=== PATIENT | male | born 2000 | race Caucasian/White ===

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

== ENCOUNTER 2021-07-17 20:18 | Emergency (ER) | payer OTHER ==
--- NOTE | 2021-07-17 21:06 | ED ---
Lower Extremity Injury HPI - General Chief Complaint: Extremity Injury, Lower Stated Complaint: Injury-Left Foot Time Seen by Provider: 07/17/21 20:37 Source: patient Mode of arrival: ambulatory Limitations: no limitations - History of Present Illness Initial Comments: Patient is a 20-year-old male presenting to emergency Department with complaints of pain in his left foot. Patient states about 2-3 days ago, he accidentally kicked a kitchen chair. He is having pain in his fifth digit and does extend up his metatarsal a bit. He does have some bruising to the area, no swelling. He states it hurts to ambulate. Denies any previous injuries or surgeries to his left foot or ankle. He has no further complaints today. - Related Data Previous Rx's Medication Instructions Recorded Albuterol Inhaler (Mhu) [Ventolin 1 - 2 puff INHALATION RT-Q6H PRN 7 08/25/19 Hfa Inhaler] Days #1 inhaler methylPREDNISolone [Medrol Dose 4 mg PO DIRECTED #1 pack 08/25/19 Pack] Allergies Allergy/AdvReac Type Severity Reaction Status Date / Time No Known Allergies Allergy Verified 07/17/21 20:26 Review of Systems ROS Statement: Those systems with pertinent positive or pertinent negative responses have been documented in the HPI. ROS Other: All systems not noted in ROS Statement are negative. Past Medical History Past Medical History: No Reported History History of Any Multi-Drug Resistant Organisms: None Reported Past Surgical History: No Surgical Hx Reported Past Psychological History: No Psychological Hx Reported Smoking Status: Never smoker Past Alcohol Use History: None Reported Past Drug Use History: None Reported General Exam - General Exam Comments Initial Comments: GENERAL: Patient is well-developed and well-nourished. Patient is nontoxic and in no acute distress. HEAD: Atraumatic, normocephalic. EYES: Pupils equal round and reactive to light, extraocular movements intact, sclera anicteric, conjunctiva are normal. Eyelids were unremarkable. LUNGS: Unlabored respirations. Breath sounds clear to auscultation bilaterally and equal. No wheezes rales or rhonchi. HEART: Regular rate and rhythm without murmurs, rubs or gallops. MUSCULOSKELETAL: Patient has pain with palpation along the left fifth toe, there is some bruising there, pain along the fifth metatarsal as well. Vascular intact, no pain of the left ankle. No clubbing or cyanosis. NEUROLOGICAL: Patient is alert and oriented x 3. SKIN: Warm, Dry, normal turgor, no rashes or lesions noted. Limitations: no limitations Course Vital Signs 07/17/21 20:24 Pulse Rate 79 Respiratory 19 Rate Blood Pressure 119/79 O2 Sat by Pulse 98 Oximetry Medical Decision Making - Medical Decision Making Patient is a 20-year-old male here with pain of his left little toe. He accidentally kicked a chair 2-3 days ago. X-rays show a possible linear lucency on one of the views however the 2 other views do not confirm this. He has a little tenderness area however more so tender over the metatarsal. I do not feel like there is an acute fracture dislocation. I discussed the patient's most likely a bone contusion versus sprain of the joint. Recommended ice to the area, he can follow up with his PCP for recheck if symptoms persist. He is agreeable to this. He is stable for discharge. Disposition Clinical Impression: Contusion of left foot Disposition: HOME SELF-CARE Condition: Stable Instructions (If sedation given, give patient instructions): Foot Contusion (ED) Additional Instructions: Please return to the Emergency Department if symptoms worsen or any other concerns. Recommend ice to the area, supportive shoe for comfort. May take motrin for pain. Follow-up with your family doctor as needed. Is patient prescribed a controlled substance at d/c from ED?: No Referrals: Dimas Jara MD [Primary Care Provider] - 1-2 days Time of Disposition: 21:41
--- NOTE | 2021-07-17 21:31 | XR ---
PROCEDURE: XR foot complete LT - 3V DATE AND TIME: 07/17/2021 9:12 PM CLINICAL INDICATION: Injury; pain, bruising. TECHNIQUE: Department protocol COMPARISON: None FINDINGS: On the PA view there is a vertically-oriented linear lucency over the proximal fifth phalan x. This is not confirmed on the other views. Request palpation correlation to correlate for tendernes s. If no tenderness in this position, then negative for fracture. There are no other candidates for fracture. There is no malalignment. The soft tissues are unremarkable. IMPRESSION: No definite acute process, as above.
[2021-07-17 21:51] VITALS: BP 118/68; PULSE 74; RESP 16; TEMP 98
== END 2021-07-17 21:50 | disposition home or self-care (01) ==
LOC: EC 20:18
DX: S90.32XA Contusion of left foot, initial encounter (principal); W22.03XA Walked into furniture, initial encounter
CPT/HCPCS: 99283

== ENCOUNTER 2021-12-10 04:20 | Emergency (ER) | payer OTHER ==
[2021-12-10 04:28] VITALS: BP 132/72; PULSE 70; RESP 16; TEMP 98.6
[2021-12-10] MEDS ORDERED: IBUPROFEN 400 MG TAB PO STA (04:43)
[2021-12-10] MEDS ORDERED: ACETAMINOPHEN TAB 325 MG TAB PO STA (04:43)
--- NOTE | 2021-12-10 04:43 | ED ---
Fall HPI - General Chief Complaint: Fall Stated Complaint: Fall, head injury Time Seen by Provider: 12/10/21 04:30 Source: patient Mode of arrival: ambulatory - History of Present Illness Complaint: fall Onset/Timin -: minutes(s) Fall From: standing When Fall Occurred: just prior to arrival Fall Witnessed: yes, by bystander Place Fall Occurred: other Loss of Consciousness: none Prolonged Down Time?: no Symptoms Prior to Fall: none Location: head Severity: moderate Quality: aching Context: tripped/slipped Associated Symptoms: headache - Related Data Previous Rx's Medication Instructions Recorded Albuterol Inhaler (Mhu) [Ventolin 1 - 2 puff INHALATION RT-Q6H PRN 7 08/25/19 Hfa Inhaler] Days #1 inhaler methylPREDNISolone [Medrol Dose 4 mg PO DIRECTED #1 pack 08/25/19 Pack] Allergies Allergy/AdvReac Type Severity Reaction Status Date / Time No Known Allergies Allergy Verified 12/10/21 04:27 Review of Systems ROS Statement: Those systems with pertinent positive or pertinent negative responses have been documented in the HPI. ROS Other: All systems not noted in ROS Statement are negative. Constitutional: Denies: fever, weakness Eyes: Denies: vision change ENT: Denies: ear pain, epistaxis Respiratory: Denies: cough, dyspnea Cardiovascular: Denies: chest pain, syncope Gastrointestinal: Denies: abdominal pain, nausea, vomiting Musculoskeletal: Denies: back pain Neurological: Reports: headache. Denies: weakness, numbness, paresthesias, confusion, vertigo Hematological/Lymphatic: Denies: easy bleeding Past Medical History Past Medical History: No Reported History History of Any Multi-Drug Resistant Organisms: None Reported Past Surgical History: No Surgical Hx Reported Past Psychological History: No Psychological Hx Reported Smoking Status: Current every day smoker, Vaper Past Alcohol Use History: None Reported Past Drug Use History: None Reported General Exam Limitations: no limitations General appearance: alert, in no apparent distress Head exam: Present: atraumatic, normocephalic, normal inspection, other (No palpable deformity or tenderness on exam.) Eye exam: Present: normal appearance, PERRL, EOMI. Absent: scleral icterus, conjunctival injection, nystagmus ENT exam: Present: normal oropharynx, mucous membranes moist, TM's normal bilaterally, normal external ear exam Neck exam: Present: normal inspection, full ROM. Absent: tenderness, meningismus Respiratory exam: Present: normal lung sounds bilaterally. Absent: respiratory distress, wheezes, rales, rhonchi, stridor, chest wall tenderness Cardiovascular Exam: Present: regular rate, normal rhythm, normal heart sounds. Absent: systolic murmur, diastolic murmur, rubs, gallop GI/Abdominal exam: Present: soft. Absent: distended, tenderness, guarding Back exam: Present: normal inspection. Absent: CVA tenderness (R), CVA tenderness (L), vertebral tenderness Neurological exam: Present: alert, oriented X3, CN II-XII intact. Absent: motor sensory deficit Skin exam: Present: warm, dry, intact, normal color. Absent: rash Course Vital Signs 12/10/21 04:25 Temperature 98.6 F Pulse Rate 70 Respiratory 16 Rate Blood Pressure 132/72 O2 Sat by Pulse 96 Oximetry Disposition Clinical Impression: Fall, Head injury, acute Disposition: HOME SELF-CARE Condition: Good Instructions (If sedation given, give patient instructions): Head Injury (ED) Is patient prescribed a controlled substance at d/c from ED?: No Referrals: Dimas Jara MD [Primary Care Provider] - 1-2 days
== END 2021-12-10 04:59 | disposition home or self-care (01) ==
LOC: EC 04:20
DX: S09.90XA Unspecified injury of head, initial encounter (principal); F17.290 Nicotine dependence, other tobacco product, uncomplicated; W01.0XXA Fall on same level from slipping, tripping and stumbling without subsequent striking against object, initial encounter
CPT/HCPCS: 99283

== ENCOUNTER 2021-12-11 20:49 | Emergency (ER) | payer OTHER ==
[2021-12-11 21:47] VITALS: TEMP 98.4
--- NOTE | 2021-12-11 23:01 | CT ---
EXAMINATION TYPE: CT brain wo con DATE OF EXAM: 12/11/2021 COMPARISON: None HISTORY: headache 2 days after head injury CT DLP: 1047.4 mGycm Automated exposure control for dose reduction was used. Images of the brain obtained without contrast. Ventricles of normal size. There is no mass effect or midline shift. There is no sign of intracranial hemorrhage. Calvarium is intact. There is normal aeration of the mastoid sinuses. IMPRESSION: Normal unenhanced head CT scan.
--- NOTE | 2021-12-11 23:03 | ED ---
Head Injury HPI - General Chief complaint: Head Injury Stated complaint: Headache Source: patient Mode of arrival: ambulatory - History of Present Illness Initial comments: Jesus is a 21-year-old male who presents to the emergency department today via private vehicle for reevaluation of persistent headache. Patient was seen and evaluated 2 days ago he had a slip and fall on ice slipping backwards and striking his head. Patient stated that since that time he has had a persistent headache episodes of confusion. - Related Data Previous Rx's Medication Instructions Recorded Albuterol Inhaler (Mhu) [Ventolin 1 - 2 puff INHALATION RT-Q6H PRN 7 08/25/19 Hfa Inhaler] Days #1 inhaler methylPREDNISolone [Medrol Dose 4 mg PO DIRECTED #1 pack 08/25/19 Pack] Allergies/Adverse reactions: Allergies Allergy/AdvReac Type Severity Reaction Status Date / Time No Known Allergies Allergy Verified 12/11/21 21:46 Review of Systems ROS Statement: Those systems with pertinent positive or pertinent negative responses have been documented in the HPI. ROS Other: All systems not noted in ROS Statement are negative. Past Medical History Past Medical History: No Reported History History of Any Multi-Drug Resistant Organisms: None Reported Past Surgical History: No Surgical Hx Reported Past Psychological History: No Psychological Hx Reported Smoking Status: Current every day smoker, Vaper Past Alcohol Use History: None Reported Past Drug Use History: None Reported General Exam - General Exam Comments Initial Comments: Physical Exam GENERAL: Patient is well-developed and well-nourished. Patient is nontoxic and well-hydrated and is in no distress. HENT: Normocephalic, Atraumatic. No levy signs, no raccoon eyes EYES: PERRL, EOMI No papilledema PULMONARY: Unlabored respirations. No audible rales rhonchi or wheezing was noted. CARDIOVASCULAR: There is a regular rate and rhythm without any murmurs gallops or rubs. ABDOMEN: Soft and nontender with normal bowel sounds. SKIN: Skin is clear with no lesions or rashes and otherwise unremarkable. : Deferred NEUROLOGIC: Patient is alert and oriented x3. Moving all extremities spontaneously MUSCULOSKELETAL: Normal extremities with adequate strength and full range of motion. No lower extremity swelling or edema. No calf tenderness. PSYCHIATRIC: Normal psychiatric evaluation. Course Vital Signs 12/11/21 21:44 Temperature 98.4 F Pulse Rate 63 Respiratory 19 Rate Blood Pressure 127/83 O2 Sat by Pulse 98 Oximetry Medical Decision Making - Medical Decision Making Computed tomography scan was ordered from triage and resolve with no acute findings The patient was seen and evaluated history was obtained from the patient and review of medical record Patient suffering from concussion symptoms. Concussion supportive care was discussed with patient including brain rest, limiting activity for the next 48 hours and slow return to activity based on symptomatology. Patient was advised that if symptoms left greater than 2 weeks he should follow with the neurologist on outpatient basis. Disposition Clinical Impression: Closed head injury Disposition: HOME SELF-CARE Instructions (If sedation given, give patient instructions): Concussion (ED) Is patient prescribed a controlled substance at d/c from ED?: No Referrals: Dimas Jara MD [Primary Care Provider] - 1-2 days
[2021-12-11 23:46] VITALS: BP 108/61; PULSE 61; RESP 17
== END 2021-12-11 23:42 | disposition home or self-care (01) ==
LOC: EC 20:49
DX: S09.90XA Unspecified injury of head, initial encounter (principal); F17.290 Nicotine dependence, other tobacco product, uncomplicated; W01.0XXA Fall on same level from slipping, tripping and stumbling without subsequent striking against object, initial encounter
CPT/HCPCS: 70450; 99284

== ENCOUNTER 2022-04-14 00:46 | Emergency (ER) | payer OTHER ==
[2022-04-14 00:49] VITALS: TEMP 98.2
[2022-04-14 01:19] VITALS: RESP 14
--- NOTE | 2022-04-14 01:31 | ED ---
Chest Pain HPI - General Chief Complaint: Chest Pain Stated Complaint: Chest pain Time Seen by Provider: 04/14/22 00:59 Source: patient, RN notes reviewed, old records reviewed Mode of arrival: ambulatory Limitations: no limitations - History of Present Illness Initial Comments: This is a 21-year-old male to the emergency room for evaluation. Patient Dese for evaluation of chest pain burning epigastric pain nausea no vomiting felt like heartburn but did not does go away. Patient has no prior history of heart disease no significant medical history no recent travel history or sick contacts. MD Complaint: chest pain -: hour(s) Onset: during rest Pain Location: substernal Pain Radiation: none Severity: mild Quality: sharp, other (Burning) Consistency: intermittent, now resolved Improves With: nothing Worsens With: nothing Other Symptoms: acid taste in mouth, burping Treatments Prior to Arrival: none - Related Data Previous Rx's Medication Instructions Recorded Albuterol Inhaler (Mhu) [Ventolin 1 - 2 puff INHALATION RT-Q6H PRN 7 08/25/19 Hfa Inhaler] Days #1 inhaler methylPREDNISolone [Medrol Dose 4 mg PO DIRECTED #1 pack 08/25/19 Pack] Allergies Allergy/AdvReac Type Severity Reaction Status Date / Time No Known Allergies Allergy Verified 04/14/22 00:49 Review of Systems ROS Statement: Those systems with pertinent positive or pertinent negative responses have been documented in the HPI. ROS Other: All systems not noted in ROS Statement are negative. EKG Findings - EKG Comments: EKG Findings:: EKG is sinus bradycardia 56 IL 146 QRS 87 QTC 380 Past Medical History Past Medical History: No Reported History History of Any Multi-Drug Resistant Organisms: None Reported Past Surgical History: No Surgical Hx Reported Past Psychological History: No Psychological Hx Reported Smoking Status: Vaper Past Alcohol Use History: None Reported Past Drug Use History: None Reported General Exam Limitations: no limitations General appearance: alert, in no apparent distress Head exam: Present: atraumatic, normocephalic, normal inspection Eye exam: Present: normal appearance, PERRL, EOMI. Absent: scleral icterus, conjunctival injection, periorbital swelling ENT exam: Present: normal exam, mucous membranes moist Neck exam: Present: normal inspection. Absent: tenderness, meningismus, lymphadenopathy Respiratory exam: Present: normal lung sounds bilaterally. Absent: respiratory distress, wheezes, rales, rhonchi, stridor Cardiovascular Exam: Present: regular rate, normal rhythm, normal heart sounds. Absent: systolic murmur, diastolic murmur, rubs, gallop, clicks GI/Abdominal exam: Present: soft, normal bowel sounds. Absent: distended, tenderness, guarding, rebound, rigid Extremities exam: Present: normal inspection, full ROM, normal capillary refill. Absent: tenderness, pedal edema, joint swelling, calf tenderness Back exam: Present: normal inspection Neurological exam: Present: alert, oriented X3, CN II-XII intact Psychiatric exam: Present: normal affect, normal mood Skin exam: Present: warm, dry, intact, normal color. Absent: rash Course Vital Signs 04/14/22 04/14/22 00:47 01:18 Temperature 98.2 F Pulse Rate 66 57 L Respiratory 18 14 Rate Blood Pressure 128/98 125/73 O2 Sat by Pulse 96 98 Oximetry - Reevaluation(s) Reevaluation #1: 04/14/22 01:14 Record is reviewed Reevaluation #2: 04/14/22 01:15 Patient informed of results and questions answered Reevaluation #3: 04/14/22 01:15 Patient feels improved and can be discharged Chest Pain MDM - MDM 21-year-old male to the emergency department with GI type chest pain burning epigastric pain with a normal chest x-ray and EKG. Patient can be discharged home Disposition Clinical Impression: Chest pain, Atypical chest pain Disposition: HOME SELF-CARE Condition: Good Instructions (If sedation given, give patient instructions): Chest Pain (ED) Is patient prescribed a controlled substance at d/c from ED?: No Referrals: Dimas Jara MD [Primary Care Provider] - 1-2 days Time of Disposition: 02:00
--- NOTE | 2022-04-14 01:45 | XR ---
EXAMINATION TYPE: XR chest 1V portable DATE OF EXAM: 04/14/2022 COMPARISON: 08/25/2019 HISTORY: Cough and congestion TECHNIQUE: Single view FINDINGS: Heart and mediastinum are normal. Lungs are clear. Diaphragm is normal. Bony thorax appears normal. IMPRESSION: Normal chest. No change
[2022-04-14 02:32] VITALS: BP 122/67; PULSE 70
== END 2022-04-14 02:31 | disposition home or self-care (01) ==
LOC: EC 00:46
DX: R07.89 Other chest pain (principal); F17.290 Nicotine dependence, other tobacco product, uncomplicated
CPT/HCPCS: 71045; 93005; 99285

== ENCOUNTER 2022-10-04 19:30 | Emergency (ER) | payer OTHER ==
[2022-10-04 20:54] VITALS: TEMP 99.1
[2022-10-04] MEDS ORDERED: FLUORESCEIN STRIPS 1 MG STRIP LEFT EYE ONE (21:02)
[2022-10-04] MEDS ORDERED: DIPH,PERTUS(ACELL)TETVAC-LF 0.5 ML VIAL IM ONE (21:02)
[2022-10-04] MEDS ORDERED: PROPARACAINE 0.5% OPHTH DROPS 15 ML BTL LEFT EYE STA (21:02)
--- NOTE | 2022-10-04 21:21 | ED ---
Eye Problem HPI - General Chief complaint: Eye Problems Stated complaint: lt eye injury Time Seen by Provider: 10/04/22 21:00 Source: patient, RN notes reviewed, old records reviewed Mode of arrival: ambulatory Limitations: no limitations - History of Present Illness Initial comments: This is a well-appearing 22-year-old male that presents ambulatory with complaints of possible foreign in his left eye. Patient was cutting wood around noon today and a fragment hit him in the eye. Patient has had increased pain and tearing since. No other injuries. Unsure of tetanus shot is up-to-date. MD chief complaint: eye pain, eye redness, eye injury -: hour(s) (10) Onset Description: sudden Location: left eye Place: street/outdoors If Injury: other (cutting wood and possible F.B.) Eye Symptoms: redness, pain, foreign body sensation, blurry vision, other (tearing) Severity scale (1-10): 8 Consistency: constant Associated Symptoms: none Treatments Prior to Arrival: none - Related Data Patient Tetanus UTD: No Previous Rx's Medication Instructions Recorded Albuterol Inhaler [Ventolin Hfa 1 - 2 puff INHALATION RT-Q6H PRN 7 08/25/19 Inhaler] Days #1 inhaler methylPREDNISolone [Medrol Dose 4 mg PO DIRECTED #1 pack 08/25/19 Pack] Ciprofloxacin Ophth Soln [Ciloxan 2 drops LEFT EYE Q6H 5 Days #2.5 ml 10/04/22 0.3% Ophth Soln] Allergies Allergy/AdvReac Type Severity Reaction Status Date / Time No Known Allergies Allergy Verified 10/04/22 20:55 Review of Systems ROS Statement: Those systems with pertinent positive or pertinent negative responses have been documented in the HPI. ROS Other: All systems not noted in ROS Statement are negative. Past Medical History Past Medical History: No Reported History History of Any Multi-Drug Resistant Organisms: None Reported Past Surgical History: No Surgical Hx Reported Past Psychological History: No Psychological Hx Reported Smoking Status: Vaper Past Alcohol Use History: None Reported Past Drug Use History: None Reported General Exam Limitations: no limitations General appearance: alert, in no apparent distress Head exam: Present: atraumatic Eye exam: Present: EOMI, conjunctival injection. Absent: scleral icterus, periorbital swelling, periorbital tenderness Pupils: Present: normal accommodation Expanded Eyelids: Normal Inspection: Bilateral Pupils: Regular, Round: Bilateral Sclera/Conjunctival: Normal Inspection: Right, Injection: Left (Small Corneal abrasion at 1:00) Anterior chamber: Normal Inspection: Bilateral With correction: No ENT exam: Present: mucous membranes moist Neck exam: Present: full ROM. Absent: tenderness, meningismus Respiratory exam: Present: normal lung sounds bilaterally. Absent: respiratory distress, accessory muscle use Cardiovascular Exam: Present: regular rate Neurological exam: Present: alert, oriented X3, normal gait Psychiatric exam: Present: normal affect, normal mood Skin exam: Present: warm, dry, intact, normal color. Absent: rash Course Vital Signs 10/04/22 10/04/22 20:53 21:53 Temperature 99.1 F Pulse Rate 71 76 Respiratory 18 16 Rate Blood Pressure 131/89 126/82 O2 Sat by Pulse 97 98 Oximetry Medical Decision Making - Medical Decision Making Patient presents with left eye irritation after cutting wood today at noon. Increased pain and tearing. Proparacaine drops and fluorescein stain with Wood's lamp revealed a small horizontal abrasion and 1:00. Negative Louis sign. No pain with extraocular eye movements. I inverted the eyelids and there is no evidence of foreign body. He does not glasses or contact lenses. Tetanus shot was updated. Patient will be given antibiotic drops and directed to follow-up with ophthalmology. Tylenol and Motrin as needed for pain. Patient agreeable with plan of care. Case was discussed with Dr. Contreras Disposition Clinical Impression: Corneal abrasion Disposition: HOME SELF-CARE Condition: Good Instructions (If sedation given, give patient instructions): Corneal Abrasion (ED) Additional Instructions: Use antibiotic eyedrops as prescribed. Tylenol and/or Motrin as needed for pain. Follow-up with ophthalmology within the next 2 days. Return to the emergency room with any new or concerning symptoms. Prescriptions: Ciprofloxacin Ophth Soln [Ciloxan 0.3% Ophth Soln] 2 drops LEFT EYE Q6H 5 Days #2.5 ml Is patient prescribed a controlled substance at d/c from ED?: No Referrals: None,Stated [Primary Care Provider] - 1-2 days Azalia Roe MD [STAFF PHYSICIAN] - 1-2 days
[2022-10-04] MEDS ORDERED: CIPROFLOXACIN 0.3% OPHTH SOLN 5 ML BTL LEFT EYE STA (21:41)
[2022-10-04 21:54] VITALS: BP 126/82; PULSE 76; RESP 16
== END 2022-10-04 21:54 | disposition home or self-care (01) ==
LOC: EC 19:30
DX: S05.02XA Injury of conjunctiva and corneal abrasion without foreign body, left eye, initial encounter (principal); F17.290 Nicotine dependence, other tobacco product, uncomplicated; Z23 Encounter for immunization; W45.8XXA Other foreign body or object entering through skin, initial encounter
CPT/HCPCS: 90471; 90715; 99283

== ENCOUNTER 2022-11-19 22:52 | Emergency (ER) | payer OTHER ==
[2022-11-19 23:06] VITALS: BP 127/77; PULSE 86; RESP 18; TEMP 98.2
[2022-11-19] MEDS ORDERED: HYDROmorphone 1 MG/ML 1 ML SYRINGE IM STA (23:10)
--- NOTE | 2022-11-19 23:29 | ED ---
General Adult HPI - General Chief complaint: Extremity Problem,Nontraumatic Stated complaint: Post-op foot pain Time Seen by Provider: 11/19/22 23:07 Source: patient Mode of arrival: wheelchair Limitations: no limitations - History of Present Illness Initial comments: Patient is a 22-year-old male presenting with chief complaint of right foot pain. He states that he had a bunion removal surgery yesterday. He does not know the name of his surgeon and believes that it was performed at [facility] in [place]. He has been taking [place] and ibuprofen for pain control and states that it is not touching the pain. Pain is localized to the foot. He is currently in a bulky splint. - Related Data Previous Rx's Medication Instructions Recorded Albuterol Inhaler [Ventolin Hfa 1 - 2 puff INHALATION RT-Q6H PRN 7 08/25/19 Inhaler] Days #1 inhaler methylPREDNISolone [Medrol Dose 4 mg PO DIRECTED #1 pack 08/25/19 Pack] Ciprofloxacin Ophth Soln [Ciloxan 2 drops LEFT EYE Q6H 5 Days #2.5 ml 10/04/22 0.3% Ophth Soln] Allergies Allergy/AdvReac Type Severity Reaction Status Date / Time No Known Allergies Allergy Verified 11/19/22 23:03 Review of Systems ROS Statement: Those systems with pertinent positive or pertinent negative responses have been documented in the HPI. ROS Other: All systems not noted in ROS Statement are negative. Past Medical History Past Medical History: No Reported History History of Any Multi-Drug Resistant Organisms: None Reported Past Surgical History: Orthopedic Surgery Past Psychological History: No Psychological Hx Reported Smoking Status: Current every day smoker, Vaper Past Alcohol Use History: Occasional Past Drug Use History: Marijuana General Exam Limitations: no limitations General appearance: alert, in no apparent distress Head exam: Present: atraumatic, normocephalic, normal inspection Eye exam: Present: normal appearance Neck exam: Present: normal inspection, full ROM Extremities exam: Present: normal inspection, tenderness, normal capillary refill, other (Soft compartments). Absent: pedal edema, calf tenderness Right Neurovascular tendon exam: Present: no vascular compromise Neurological exam: Present: alert, oriented X3, CN II-XII intact Psychiatric exam: Present: normal affect, normal mood Skin exam: Present: warm, dry, intact, normal color. Absent: rash Course Vital Signs 11/19/22 23:03 Temperature 98.2 F Pulse Rate 86 Respiratory 18 Rate Blood Pressure 127/77 O2 Sat by Pulse 96 Oximetry Procedures - Orthopedic Splinting/Casting Injury #1 Side: right Lower Extremity Injury Location: foot Lower Extremity Immobilizer: posterior splint Additional Comments: reapplied posterior leg splint for post-op healing Medical Decision Making - Medical Decision Making Was pt. sent in by a medical professional or institution (NIDHI Tobin, PRODUCTION GRAPHIC DESIGNER, urgent care, hospital, or prison...) When possible be specific @ -No Did you speak to anyone other than the patient for history (EMS, parent, family, police, friend...)? What history was obtained from this source @ -No Did you review nursing and triage notes (agree or disagree)? Why? @ -I reviewed and agree with nursing and triage notes Were old charts reviewed (outside hosp., previous admission, EMS record, old EKG, old radiological studies, urgent care reports/EKG's, prison records)? Report findings @ -No old charts were reviewed Differential Diagnosis (chest pain, altered mental status, abdominal pain women, abdominal pain men, vaginal bleeding, weakness, fever, dyspnea, syncope, headache, dizziness, GI bleed, back pain, seizure, CVA, palpatations, mental health)? @ -Differential includes postop pain, compartment syndrome, postop infection EKG interpreted by me (3pts min.). @ -As above X-rays interpreted by me (1pt min.). @ -None done CT interpreted by me (1pt min.). @ -None done U/S interpreted by me (1pt. min.). @ -None done What testing was considered but not performed or refused? (CT, X-rays, U/S, labs)? Why? @ -None What meds were considered but not given or refused? Why? @ -None Did you discuss the management of the patient with other professionals (professionals i.e. NIDHI Tobin, PRODUCTION GRAPHIC DESIGNER, lab, RT, psych nurse, social services technician, concrete block molder, teacher, inspectors and regulatory officers, correctional counselor/case manager)? Give summary @ -No Was smoking cessation discussed for >3mins.? @ -No Was critical care preformed (if so, how long)? @ -No Were there social determinants of health that impacted care today? How? (Homelessness, low income, unemployed, alcoholism, drug addiction, transportation, low edu. Level, literacy, decrease access to med. care, fci, rehab)? @ -No Was there de-escalation of care discussed even if they declined (Discuss DNR or withdrawal of care, Hospice)? DNR status @ -No What co-morbidities impacted this encounter? (DM, HTN, Smoking, COPD, CAD, Cancer, CVA, ARF, Chemo, Hep., AIDS, mental health diagnosis, sleep apnea, morbid obesity)? @ -None Was patient admitted / discharged? Hospital course, mention meds given and route, prescriptions, significant lab abnormalities, going to OR and other pertinent info. @ -Patient is a 22-year-old male presenting with chief complaint of right foot pain. Patient had bunion removal surgery yesterday. On physical examination there is some tenderness to palpation. Incision appears normal, no sign of infection. Compartments are soft and pulses are 2+. There is some tenderness to palpation. Patient is given 1 mg Dilaudid, and reassessment he reports improvement in pain. Bulky splint is reapplied. Patient is instructed to follow-up at his appointment on . Follow-up with PCP. Report back to ER with any new or worsening symptoms. Discussed return parameters and answered all questions. Patient conveyed verbal understanding and agreed to the plan. I discussed this case in detail with my attending Dr. Oneill Undiagnosed new problem with uncertain prognosis? @ -No Drug Therapy requiring intensive monitoring for toxicity (Heparin, Nitro, Insulin, Cardizem)? @ -No Were any procedures done? @ -No Diagnosis/symptom? @ -Postoperative pain Acute, or Chronic, or Acute on Chronic? @ -Acute Uncomplicated (without systemic symptoms) or Complicated (systemic symptoms)? @ -Uncomplicated Side effects of treatment? @ -No Exacerbation, Progression, or Severe Exacerbation? @ -No Poses a threat to life or bodily function? How? (Chest pain, [place], [place], pneumonia, PE, COPD, DKA, ARF, appy, cholecystitis, CVA, Diverticulitis, Homicidal, Suicidal, threat to staff... and all critical care pts) @ -No Disposition Clinical Impression: Post-op pain Disposition: HOME SELF-CARE Condition: Good Instructions (If sedation given, give patient instructions): Pain Management After Surgery (DC) Additional Instructions: Follow up with surgeon. Report back to ER with any new or worsening symptoms. Take Motrin and [place] as prescribed. Rest ice and elevate the leg above the lev el of the heart Is patient prescribed a controlled substance at d/c from ED?: No Referrals: None,Stated [Primary Care Provider] - 1-2 days Time of Disposition: 00:34
== END 2022-11-20 01:04 | disposition home or self-care (01) ==
LOC: EC 22:52
DX: G89.18 Other acute postprocedural pain (principal); F17.200 Nicotine dependence, unspecified, uncomplicated; F12.90 Cannabis use, unspecified, uncomplicated
CPT/HCPCS: 29515; 99283; 96372; J1170

== ENCOUNTER 2023-08-20 02:20 | Emergency (ER) | payer OTHER ==
[2023-08-20 02:44] VITALS: RESP 18; TEMP 98.2
[2023-08-20] MEDS ORDERED: IBUPROFEN 800 MG TAB PO STA (03:38)
[2023-08-20] MEDS ORDERED: ACETAMINOPHEN TAB 500 MG TAB PO STA (03:38)
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
[2023-08-20 06:30] VITALS: BP 134/77; PULSE 70
--- NOTE | 2023-08-20 07:22 | XR ---
EXAMINATION TYPE: XR ankle complete RT DATE OF EXAM: 08/20/2023 COMPARISON: NONE HISTORY: Pain TECHNIQUE: Frontal, lateral and oblique images of the right ankle are obtained. COMPARISON: None. FINDINGS: There is no acute fracture/dislocation evident. The joint spaces appear within normal akhtar its. The overlying soft tissue appears unremarkable. IMPRESSION: There is no acute fracture or dislocation seen.
== END 2023-08-20 05:12 | disposition home or self-care (01) ==
LOC: EC 02:20
DX: S93.401A Sprain of unspecified ligament of right ankle, initial encounter (principal); F17.290 Nicotine dependence, other tobacco product, uncomplicated; F12.90 Cannabis use, unspecified, uncomplicated; W03.XXXA Other fall on same level due to collision with another person, initial encounter
CPT/HCPCS: 99283

== ENCOUNTER 2023-11-28 20:03 | Emergency (ER) | payer OTHER ==
[2023-11-28 20:55] VITALS: TEMP 98.6
--- NOTE | 2023-11-28 20:59 | ED ---
Psych HPI - General Chief Complaint: Psychiatric Symptoms Stated Complaint: Mental health eval Time Seen by Provider: 11/28/23 20:33 Source: patient Mode of arrival: ambulatory - History of Present Illness Initial Comments: Patient is a 23-year-old man who presents with complaint that he is having increasingly depressed mood. He states that this has been triggered by his dog having to be put down and by his mother having health problems. The patient states that he does not have any suicidal ideation. Patient not having homicidal ideation. He is mainly worried because he knew he does not have a doctor and does not have any current treatment MD Complaint: feels depressed Onset/Timin -: month(s) Associated Psychiatric Symptoms: depression History of same: No Quality: getting worse Improves With: none Worsens With: none Context: significant life stressor - Related Data Previous Rx's Medication Instructions Recorded Albuterol Inhaler [Ventolin Hfa 1 - 2 puff INHALATION RT-Q6H PRN 7 08/25/19 Inhaler] Days #1 inhaler methylPREDNISolone [Medrol Dose 4 mg PO DIRECTED #1 pack 08/25/19 Pack] Ciprofloxacin Ophth Soln [Ciloxan 2 drops LEFT EYE Q6H 5 Days #2.5 ml 10/04/22 0.3% Ophth Soln] Melatonin 3 mg PO HS PRN #20 tablet 11/28/23 Allergies Allergy/AdvReac Type Severity Reaction Status Date / Time No Known Allergies Allergy Verified 11/28/23 20:31 Review of Systems ROS Statement: Those systems with pertinent positive or pertinent negative responses have been documented in the HPI. ROS Other: All systems not noted in ROS Statement are negative. Constitutional: Denies: fever, chills Respiratory: Denies: cough, dyspnea Cardiovascular: Denies: chest pain, palpitations Gastrointestinal: Denies: abdominal pain, vomiting, diarrhea Genitourinary: Denies: dysuria, hematuria Musculoskeletal: Denies: back pain Skin: Denies: rash Neurological: Denies: headache Psychiatric: Reports: depression. Denies: auditory hallucinations, visual hallucinations, homicidal thoughts, suicidal thoughts Past Medical History Past Medical History: No Reported History History of Any Multi-Drug Resistant Organisms: None Reported Past Surgical History: Orthopedic Surgery Past Psychological History: No Psychological Hx Reported Smoking Status: Current every day smoker, Vaper Past Alcohol Use History: Occasional Past Drug Use History: Marijuana General Exam Limitations: no limitations General appearance: alert, in no apparent distress Head exam: Present: atraumatic, normocephalic Eye exam: Present: normal appearance Neck exam: Present: normal inspection Respiratory exam: Present: normal lung sounds bilaterally. Absent: respiratory distress, wheezes, rales, rhonchi, stridor Cardiovascular Exam: Present: regular rate, normal rhythm, normal heart sounds. Absent: systolic murmur, diastolic murmur, rubs, gallop GI/Abdominal exam: Present: soft. Absent: distended, tenderness, guarding, rebound, rigid Extremities exam: Present: normal inspection Back exam: Present: normal inspection Neurological exam: Present: alert Psychiatric exam: Present: normal affect, depressed. Absent: agitated, anxious, flat affect, manic, homicidal ideation, suicidal ideation Skin exam: Present: warm, dry, intact, normal color. Absent: rash Course Vital Signs 11/28/23 11/28/23 20:30 21:40 Temperature 98.6 F Pulse Rate 71 66 Respiratory 18 16 Rate Blood Pressure 129/85 122/79 O2 Sat by Pulse 98 96 Oximetry Medical Decision Making - Medical Decision Making Was pt. sent in by a medical professional or institution (, PA, ELECTRIC SYSTEM OPERATOR, urgent care, hospital, or [facility]...) When possible be specific @ -[No] Did you speak to anyone other than the patient for history (EMS, parent, family, police, friend...)? What history was obtained from this source @ -[No] Did you review nursing and triage notes (agree or disagree)? Why? @ -[I reviewed and agree with nursing and triage notes] Were old charts reviewed (outside hosp., previous admission, EMS record, old EKG, old radiological studies, urgent care reports/EKG's, [facility] records)? Report findings @ -[No old charts were reviewed] Differential Diagnosis (chest pain, altered mental status, abdominal pain women, abdominal pain men, vaginal bleeding, weakness, fever, dyspnea, syncope, headache, dizziness, GI bleed, back pain, seizure, CVA, palpatations, mental health, musculoskeletal)? @ -[Differential Mental Health Depression, anxiety, bipolar, psychosis, schizophrenia, borderline personality, situational depression, adjustment disorder, behavioral disorder, brain tumor, malingering, substance abuse, encephalopathy, medication reaction, dementia, hypothyroidism, degenerative neurologic disorder, lupus.... This is not meant to be all-inclusive list EKG interpreted by me (3pts min.). @ -[As above] X-rays interpreted by me (1pt min.). @ -[None done] CT interpreted by me (1pt min.). @ -[None done] U/S interpreted by me (1pt. min.). @ -[None done] What testing was considered but not performed or refused? (CT, X-rays, U/S, labs)? Why? @ -[None] What meds were considered but not given or refused? Why? @ -[None] Did you discuss the management of the patient with other professionals (professionals i.e. , PA, ELECTRIC SYSTEM OPERATOR, lab, RT, psych nurse, social media designer, post acute care registered nurse, teacher, corporate officer, spring encaser)? Give summary @ -[The patient's case is discussed with EPS personnel, and they evaluated the patient and staffed with psychiatrist. Treatment recommendations are incorporated Was smoking cessation discussed for >3mins.? @ -[No] Was critical care preformed (if so, how long)? @ -[No] Were there social determinants of health that impacted care today? How? (Homelessness, low income, unemployed, alcoholism, drug addiction, tr ansportation, low edu. Level, literacy, decrease access to med. care, shelter, rehab)? @ -[No] Was there de-escalation of care discussed even if they declined (Discuss DNR or withdrawal of care, Hospice)? DNR status @ -[No] What co-morbidities impacted this encounter? (DM, HTN, Smoking, COPD, CAD, Cancer, CVA, ARF, Chemo, Hep., AIDS, mental health diagnosis, sleep apnea, morbid obesity)? @ -[None] Was patient admitted / discharged? Hospital course, mention meds given and route, prescriptions, significant lab abnormalities, going to OR and other pertinent info. @ -[hospital course] Undiagnosed new problem with uncertain prognosis? @ -[No] Drug Therapy requiring intensive monitoring for toxicity (Heparin, Nitro, Insulin, Cardizem)? @ -[No] Were any procedures done? @ -[No] Diagnosis/symptom? @ -[Acute mood disorder Acute, or Chronic, or Acute on Chronic? @ -[Acute Uncomplicated (without systemic symptoms) or Complicated (systemic symptoms)? @ -[Uncomplicated Side effects of treatment? @ -[No] Exacerbation, Progression, or Severe Exacerbation? @ -[No] Poses a threat to life or bodily function? How? (Chest pain, [place], [place], pneumonia, PE, COPD, DKA, ARF, appy, cholecystitis, CVA, Diverticulitis, Homicidal, Suicidal, threat to staff... and all critical care pts) @ -[No] Disposition Clinical Impression: Mood disorder Disposition: HOME SELF-CARE Condition: Fair Instructions (If sedation given, give patient instructions): Mood Disorders (ED) Prescriptions: Melatonin 3 mg PO HS PRN #20 tablet PRN Reason: Insomnia Is patient prescribed a controlled substance at d/c from ED?: No Referrals: None,Stated [Primary Care Provider] - 1-2 days
[2023-11-28 21:49] VITALS: BP 122/79; PULSE 66; RESP 16
== END 2023-11-28 21:45 | disposition home or self-care (01) ==
LOC: EC 20:03
DX: F39 Unspecified mood [affective] disorder (principal); F17.290 Nicotine dependence, other tobacco product, uncomplicated; F12.90 Cannabis use, unspecified, uncomplicated
CPT/HCPCS: 82075; 99285

== ENCOUNTER 2024-12-21 23:46 | Emergency (ER) | payer BC, OTHER ==
[2024-12-21 23:53] VITALS: RESP 18
[2024-12-22] MEDS: ACETAMINOPHEN TAB 500 MG TAB PO STA (00:43)
--- NOTE | 2024-12-22 00:43 | ED ---
Upper Extremity HPI - General Chief Complaint: Extremity Injury, Upper Stated Complaint: fall down (7) stairs Time Seen by Provider: 12/22/24 00:39 Source: patient, RN notes reviewed Mode of arrival: ambulatory Limitations: no limitations - History of Present Illness Initial Comments: 24-year-old male presenting for bilateral forearm pain status post fall downstairs 3 hours ago. He was walking down the stairs at home when he accidentally slipped on a trash bag and fell face first down approximately 7 steps. States he landed on bilateral forearms. Denies hitting head or losing consciousness. He is endorsing pain in the bilateral forearms, especially the left side. No other injuries. - Related Data Previous Rx's Medication Instructions Recorded Albuterol Inhaler [Ventolin Hfa 1 - 2 puff INHALATION RT-Q6H PRN 7 08/25/19 Inhaler] Days #1 inhaler methylPREDNISolone [Medrol Dose 4 mg PO DIRECTED #1 pack 08/25/19 Pack] Ciprofloxacin Ophth Soln [Ciloxan 2 drops LEFT EYE Q6H 5 Days #2.5 ml 10/04/22 0.3% Ophth Soln] Melatonin 3 mg PO HS PRN #20 tablet 11/28/23 Allergies Allergy/AdvReac Type Severity Reaction Status Date / Time No Known Allergies Allergy Verified 12/21/24 23:53 Review of Systems ROS Statement: Those systems with pertinent positive or pertinent negative responses have been documented in the HPI. ROS Other: All systems not noted in ROS Statement are negative. Past Medical History Past Medical History: No Reported History History of Any Multi-Drug Resistant Organisms: None Reported Past Surgical History: Orthopedic Surgery Past Psychological History: No Psychological Hx Reported Smoking Status: Current every day smoker, Vaper Past Alcohol Use History: Occasional Past Drug Use History: Marijuana General Exam Limitations: no limitations General appearance: alert, in no apparent distress Head exam: Present: atraumatic, normocephalic, normal inspection Eye exam: Present: normal appearance, PERRL, EOMI. Absent: scleral icterus, conjunctival injection, periorbital swelling ENT exam: Present: normal exam, mucous membranes moist Neck exam: Present: normal inspection. Absent: tenderness, meningismus, lymphadenopathy Left Shoulder Exam: Present: normal inspection, full ROM. Absent: tenderness, swelling Upper Arm exam: Present: normal inspection, full ROM. Absent: tenderness, swelling Elbow exam: Present: normal inspection, full ROM, tenderness (Tenderness over proximal aspect of left dorsal forearm.). Absent: swelling, abrasion, deformity, erythema Forearm Wrist exam: Present: normal inspection, full ROM. Absent: tenderness, swelling Hand Wrist exam: Present: normal inspection, full ROM. Absent: tenderness, swelling Vascular: Present: normal capillary refill, radial pulse. Absent: vascular compromise Right Shoulder Exam: Present: normal inspection, full ROM. Absent: tenderness, swelling Upper Arm exam: Present: normal inspection, full ROM. Absent: tenderness, swelling Elbow exam: Present: normal inspection, full ROM, tenderness (Tenderness over proximal aspect of right dorsal forearm.). Absent: swelling, abrasion, erythema Forearm Wrist exam: Present: normal inspection, full ROM. Absent: tenderness, s welling Hand Wrist exam: Present: normal inspection, full ROM. Absent: tenderness, swelling Vascular: Present: normal capillary refill, radial pulse. Absent: vascular compromise Neurological exam: Present: alert, oriented X3 Psychiatric exam: Present: normal affect, normal mood Skin exam: Present: warm, dry, intact, normal color. Absent: rash Course Vital Signs 12/21/24 12/22/24 23:48 03:10 Temperature 97.9 F 97.8 F Pulse Rate 81 71 Respiratory 18 18 Rate Blood Pressure 134/93 130/74 O2 Sat by Pulse 98 99 Oximetry Procedures - Orthopedic Splinting/Casting Injury #1 Side: left Upper Extremity Injury Location: long arm Upper Extremity Immobilizer: sling/shoulder immobilizer Additional Comments: Neurovascularly intact status post splint Medical Decision Making - Medical Decision Making Was pt. sent in by a medical professional or institution (, PA, TOILET AND LAUNDRY SOAP SUPERVISOR, urgent care, hospital, or snf...) When possible be specific @ -No Did you speak to anyone other than the patient for history (EMS, parent, family, police, friend...)? What history was obtained from this source @ -No Did you review nursing and triage notes (agree or disagree)? Why? @ -I reviewed and agree with nursing and triage notes Were old charts reviewed (outside hosp., previous admission, EMS record, old EKG, old radiological studies, urgent care reports/EKG's, snf records)? Report findings @ -No old charts were reviewed Differential Diagnosis (chest pain, altered mental status, abdominal pain women, abdominal pain men, vaginal bleeding, weakness, fever, dyspnea, syncope, headache, dizziness, GI bleed, back pain, seizure, CVA, palpatations, mental health, musculoskeletal)? @ -Differential Musculoskeletal Muscular strain, contusion, ligament sprain, fracture, arthritis, septic arthritis, bursitis, cellulitis, muscle spasm, nerve compression, DVT, arterial occlusion, herpes zoster, electrolyte abnormality, tumor.... This is not meant to be in all inclusive list EKG interpreted by me (3pts min.). @ -None X-rays interpreted by me (1pt min.). @ -X-ray bilateral forearms reveals query left radial head/neck fracture and elbow joint effusion CT interpreted by me (1pt min.). @ -None done U/S interpreted by me (1pt. min.). @ -None done What testing was considered but not performed or refused? (CT, X-rays, U/S, labs)? Why? @ -None What meds were considered but not given or refused? Why? @ -None Did you discuss the management of the patient with other professionals (professionals i.e. , PA, TOILET AND LAUNDRY SOAP SUPERVISOR, lab, RT, psych nurse, mental health social worker, vending machine coin collector, teacher, financial aids officer, case filler)? Give summary @ -No Was smoking cessation discussed for >3mins.? @ -No Was critical care preformed (if so, how long)? @ -No Were there social determinants of health that impacted care today? How? (Home lessness, low income, unemployed, alcoholism, drug addiction, transportation, low edu. Level, literacy, decrease access to med. care, senior care, rehab)? @ -No Was there de-escalation of care discussed even if they declined (Discuss DNR or withdrawal of care, Hospice)? DNR status @ -No What co-morbidities impacted this encounter? (DM, HTN, Smoking, COPD, CAD, Cancer, CVA, ARF, Chemo, Hep., AIDS, mental health diagnosis, sleep apnea, morbid obesity)? @ -None Was patient admitted / discharged? Hospital course, mention meds given and route, prescriptions, significant lab abnormalities, going to OR and other pertinent info. @ -Discharge. This is a 24-year-old male presenting for bilateral forearm pain status post mechanical fall down 7 stairs. Denies head injury or loss of consciousness. There is point tenderness in proximal aspect of left dorsal forearm. Neurovascularly intact. X-ray reveals query left radial head/neck fracture and elbow joint effusion. Results discussed with patient. Orthopedic posterior long-arm splint placed and sling was applied. Advised orthopedic follow-up tomorrow. Appropriate return precautions/supportive care discussed. Case was discussed with my ED attending Dr. Rodriguez. Undiagnosed new problem with uncertain prognosis? @ -No Drug Therapy requiring intensive monitoring for toxicity (Heparin, Nitro, Insulin, Cardizem)? @ -No Were any procedures done? @ -Orthopedic splint performed Diagnosis/symptom? @ -Left radial head fracture Acute, or Chronic, or Acute on Chronic? @ -Acute Uncomplicated (without systemic symptoms) or Complicated (systemic symptoms)? @ -Uncomplicated Side effects of treatment? @ -No Exacerbation, Progression, or Severe Exacerbation? @ -No Poses a threat to life or bodily function? How? (Chest pain, [place], [place], pneumonia, PE, COPD, DKA, ARF, appy, cholecystitis, CVA, Diverticulitis, Homicidal, Suicidal, threat to staff... and all critical care pts) @ -No Disposition Clinical Impression: Left radial head fracture Disposition: HOME SELF-CARE Condition: Stable Instructions (If sedation given, give patient instructions): Elbow Fracture (ED) Additional Instructions: Follow-up with Dr. Ni as discussed. Keep splint dry and use sling at all times. Please return to the Emergency Department if symptoms worsen or any other concerns. Is patient prescribed a controlled substance at d/c from ED?: No Referrals: None,Stated [Primary Care Provider] - 1-2 days Ronan Ni MD [STAFF PHYSICIAN] - 1-2 days Time of Disposition: 03:21
--- NOTE | 2024-12-22 02:28 | XR ---
EXAM: XR Bilateral Forearms, 2 Views CLINICAL HISTORY: ITS.REASON XR Reason: bilateral forearm injury TECHNIQUE: Frontal and lateral views of the bilateral forearms. COMPARISON: No relevant prior studies available. FINDINGS: Bones/joints: Query left radial head/neck fracture and elbow joint effusion. No evidence of acute fracture or dislocation of the right forearm. Soft tissues: Unremarkable. IMPRESSION: Query left radial head/neck fracture and elbow joint effusion.
[2024-12-22 03:11] VITALS: BP 130/74; PULSE 71; TEMP 97.8
== END 2024-12-22 03:36 | disposition home or self-care (01) ==
LOC: EC 23:46
DX: S52.122A Displaced fracture of head of left radius, initial encounter for closed fracture (principal); M79.631 Pain in right forearm; F17.290 Nicotine dependence, other tobacco product, uncomplicated; W10.9XXA Fall (on) (from) unspecified stairs and steps, initial encounter; Y92.009 Unspecified place in unspecified non-institutional (private) residence as the place of occurrence of the external cause; Y93.01 Activity, walking, marching and hiking
CPT/HCPCS: 29105; 99283